=== PATIENT | female | born 1955 | race Caucasian/White ===

== ENCOUNTER 2016-12-23 13:21 | Day surgery (SDC) | payer OTHER ==
[~2016-12-23] VITALS: Ht 154.9 cm; Wt 64.0 kg
[~2016-12-23 13:21] MED LIST: TYLENOL
[2016-12-23 14:53] VITALS: Ht 154.9 cm; Wt 64.0 kg
[2016-12-23] MEDS ORDERED: CHOLESTEROL MEDS. (15:01)
[2016-12-23 15:24] VITALS: BP 138/74; PULSE 77; RESP 16
--- NOTE | 2016-12-23 16:07 | OPPN ---
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
--- NOTE | 2016-12-23 16:07 | OPPN ---
Date/Time of Note Date/Time of Note DATE: 12/23/16 TIME: 16:05 Operative Report Preoperative Diagnosis Abdominal pain Chronic heartburn Screening Postoperative Diagnosis Hiatal hernia Gastroesophageal reflux disease Gastritis with erosions Diverticulosis of the colon Internal hemorrhoids No colon neoplasm is identified Operation/Procedure Performed Esophagogastroduodenoscopy and biopsy Colonoscopy Surgeon see signature line facility assistant None Anesthesia: moderate sedation Estimated blood loss: none Transfusion Required none Specimen Gastric mucosal biopsy Grafts/Implants none Complications none MATT BARNES MD Dec 23, 2016 16:07
--- NOTE | 2016-12-23 16:07 | OPPN ---
Date/Time of Note Date/Time of Note DATE: 12/23/16 TIME: 16:05 Operative Report Preoperative Diagnosis Abdominal pain Chronic heartburn Screening Postoperative Diagnosis Hiatal hernia Gastroesophageal reflux disease Gastritis with erosions Diverticulosis of the colon Internal hemorrhoids No colon neoplasm is identified Operation/Procedure Performed Esophagogastroduodenoscopy and biopsy Colonoscopy Surgeon see signature line delinquent tax collection assistant None Anesthesia: moderate sedation Estimated blood loss: none Transfusion Required none Specimen Gastric mucosal biopsy Grafts/Implants none Complications none MATT BARNES MD Dec 23, 2016 16:07
[2016-12-23 16:40] VITALS: BP 122/71; RESP 14
[2016-12-23] MEDS ORDERED: MIDAZOLAM 1 MG/ML 2 ML INJ ONE ×2 (16:42)
[2016-12-23] MEDS ORDERED: FENTAnyl 50 MCG/ML VIAL ONE (16:42)
--- NOTE | 2016-12-24 05:40 | GILP ---
DATE OF PROCEDURE: NAME OF PROCEDURES: 1. Esophagogastroduodenoscopy and biopsy. 2. Colonoscopy. SURGEON: Matt Krishnan MD. PREOPERATIVE DIAGNOSES: 1. Abdominal pain. 2. Chronic heartburn. 3. Screening colonoscopy. POSTOPERATIVE DIAGNOSES: 1. Hiatal hernia. 2. Gastroesophageal reflux disease. 3. Gastritis with erosions. 4. Gastric mucosal biopsies were taken for Helicobacter pylori test. 5. Colonoscopy all the way to the cecum. 6. Diverticulosis of the colon. 7. Internal hemorrhoids. 8. No colon neoplasm was identified. INDICATION FOR THE PROCEDURE: Ms. Jamila Ann is a 61-year-old female patient who had upper abdom inal pain and chronic heartburn, not responding to therapy. She also needed screening colonoscopy. The procedures and possible complications were well explained to the patient. The patient understoo d and consented to the procedures. DESCRIPTION OF PROCEDURE: Under the influence of fentanyl and Versed, the gastroscope was carefully introduced into the esophagus and under direct vision, it was advanced to the stomach and through t he pylorus into the duodenal bulb and descending duodenum. FINDINGS: ESOPHAGUS: The patient had hiatal hernia and gastroesophageal reflux disease. STOMACH: She had gastritis with erosions. Gastric mucosal biopsies were taken for H. pylori test. DUODENUM: Normal. The colonoscope was carefully introduced in the rectum and under direct vision, it was advanced all the way to the cecum. FINDINGS: The patient had diverticulosis of the colon. She also had internal hemorrhoids. No colo n neoplasm was identified. She tolerated the procedures very well and there was no complication from the procedures. At the en d of the procedures, she was awake with stable vital signs and she was discharged home to the care o f her family. IMPRESSION: Please see postoperative diagnosis. PLAN: 1. Omeprazole 40 mg p.o. q.a.m. 2. Await H. pylori test report. 3. Next screening colonoscopy in 10 years. Dictated By: MATT KNUTSON/LOKESH Conf#: [id number] DID#: [id number]
== END 2016-12-23 16:49 | disposition home or self-care (01) ==
LOC: GIL 13:21 → MERGE 15:30 → GIL 16:49
PROVIDERS: ATTEND Internal Medicine Gastroenterology
DX: Z12.11 Encounter for screening for malignant neoplasm of colon (principal); K29.70 Gastritis, unspecified, without bleeding; K21.9 Gastro-esophageal reflux disease without esophagitis; K44.9 Diaphragmatic hernia without obstruction or gangrene; K57.30 Diverticulosis of large intestine without perforation or abscess without bleeding; K64.8 Other hemorrhoids
CPT/HCPCS: 43239; 45378; J2250; J3010; Z7610